=== PATIENT | male | born 1995 ===

== ENCOUNTER 2017-12-04 17:11 | Emergency (ER) | payer OTHER ==
[2017-12-04 17:45] VITALS: RESP 18; TEMP 98
[2017-12-04] MEDS ORDERED: Naproxen 550 mg Tab PO STA (18:05)
[2017-12-04] MEDS ORDERED: Naproxen 550 mg Tab PO ONE (18:12)
--- NOTE | 2017-12-04 18:21 | C.PDOC ---
Time Seen by Provider: 12/04/17 17:48 Chief Complaint (Nursing): ENT Problem History Per: Patient, Family Onset/Duration Of Symptoms: Days (3) Current Symptoms Are (Timing): Still Present Location Of Pain: Throat Associated Symptoms: Sore Throat Severity: Moderate Additional History Per: Prior Records Past Medical History Reviewed: Historical Data, Nursing Documentation, Vital Signs Vital Signs: Last Vital Signs Temp 98 F 12/04/17 17:41 Pulse 66 12/04/17 17:41 Resp 18 12/04/17 17:41 BP 158/82 H 12/04/17 17:41 Pulse Ox 100 12/04/17 18:22 - Medical History PMH: No Chronic Diseases Surgical History: No Surg Hx Family History: States: Unknown Family Hx - Social History Hx Tobacco Use: No Hx Alcohol Use: No Hx Substance Use: No - Immunization History Hx Tetanus Toxoid Vaccination: Yes Hx Influenza Vaccination: No Hx Pneumococcal Vaccination: No Review Of Systems Except As Marked, All Systems Reviewed And Found Negative. Constitutional: Positive for: Fever ENT: Positive for: Mouth Pain (lesion on lower lip), Throat Pain. Negative for : Ear Pain, Nose Congestion Cardiovascular: Negative for: Chest Pain Respiratory: Negative for: Cough, Shortness of Breath Gastrointestinal: Negative for: Vomiting, Abdominal Pain, Diarrhea Genitourinary: Negative for: Dysuria Musculoskeletal: Negative for: Neck Pain Skin: Negative for: Rash Neurological: Positive for: Headache. Negative for: Weakness, Numbness Physical Exam - Physical Exam Appears: Non-toxic, No Acute Distress Skin: Normal Color, Warm, Dry, No Rash Head: Atraumatic, Normacephalic Eye(s): bilateral: Normal Inspection, PERRL, EOMI Oral Mucosa: Moist, No Drooling, No Trismus Tongue: Normal Appearing Lips: Swelling (mild swelling on lower lip) Throat: Erythema, No Exudate, No Drooling, No Mass Neck: Normal ROM, Supple Lymphatic: No Adenopathy Cardiovascular: Rhythm Regular Respiratory: Normal Breath Sounds, No Accessory Muscle Use Gastrointestinal/Abdominal: Soft, No Tenderness, No Organomegaly Back: No CVA Tenderness Extremity: Normal ROM Neurological/Psych: Oriented x3, Normal Speech, Normal Motor, Normal Sensation ED Course And Treatment - Laboratory Results Interpretation Of Abnormal: Rapid Strep negative O2 Sat by Pulse Oximetry: 100 Pulse Ox Interpretation: Normal Reassessment Condition: Improved Disposition Counseled Patient/Family Regarding: Studies Performed, Diagnosis, Need For Followup, Rx Given - Disposition Referrals: [facility] [Outside] Disposition: HOME/ ROUTINE Disposition Time: 18:36 Condition: STABLE Additional Instructions: Drink plenty of fluids. Follow up with your doctor or in the clinic. Return to the ER if you develop high fever, trouble breathing or swallowing, worsening of symptoms or if you have any other concerns. Prescriptions: Naproxen [Naprosyn] 1 tab PO BID PRN #20 tab PRN Reason: Pain Instructions: Viral Pharyngitis (DC) Print Language: ENGLISH - Clinical Impression Clinical Impression: Acute pharyngitis
[2017-12-04 18:53] VITALS: BP 142/82; PULSE 81; O2SAT 98
== END 2017-12-04 18:46 | disposition home or self-care (01) ==
LOC: C.ER 17:11
DX: J02.9 Acute pharyngitis, unspecified (principal)